=== PATIENT | male | born 1975 | race Caucasian/White ===

== ENCOUNTER 2022-01-07 10:03 | Outpatient (CLI) | payer OTHER, SELFPAY | END 2022-01-07 10:04 | disposition home or self-care (01) | LOC: OP CLINIC 10:06 | PROVIDERS: PCP Family Medicine; Visit Provider Internal Medicine | DX: Z12.11 Encounter for screening for malignant neoplasm of colon (principal); K63.5 Polyp of colon; Z80.0 Family history of malignant neoplasm of digestive organs | CPT/HCPCS: 45385; 88305; J2250; J3010 ==

== ENCOUNTER 2024-08-03 01:44 | Emergency (ER) | payer OTHER, SELFPAY ==
--- NOTE | 2024-08-03 01:45 | ED_ITS ---
HPI - General Adult General Date Seen: 08/03/24 Chief complaint: Fever Stated complaint: Fever, short of breath, elevated heartrate Time Seen by Provider: 08/03/24 01:44 History of Present Illness HPI narrative: 48-year-old male with a past medical history of obstructive sleep apnea and previous diagnosis of reactive airways disease/asthma . He is a nonsmoker. He has a family history of coronary artery disease. His father had a triple bypass. His grandmother also had a heart valve replaced. He presents to the ER today by private car, accompanied by his . He report that he did become sick this evening at around 7 or 8:00 p.m. with sensation of chills and feeling cold. Prior to that he had a little bit of leg aches in both of his legs for the past couple of days. No known new activity or injury. 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 His recently got him an exercise bike that fits underneath his desk so he can do some paddling while he is working during the day. He has not started using it yet. After the chills he went to bed this evening. He was awoken at about 1:00 a.m. this morning with shivering chills and shakes. He felt very hot and he actually got in the shower to cool off. He measured his temperature at 101? F. measured his temperature a 2nd time and got a reading of 103 F. he took some Tylenol. In addition to feeling shaky and fever a she also had some tightness and trouble breathing in his chest. Use 2 puffs of his albuterol inhaler with some improvement in that chest tightness. His measured his vital signs. Oxygen levels were 95% roughly. Heart rate was higher than normal for him at 105 beats per minute. He does not have any recent travel or prolonged immobilization. No recent swelling in his legs. No history of DVT or PE. Nonsmoker. . Related Data Home Medications ?Medication ?Instructions ?Recorded ?Confirmed clobetasol 0.05 % topical cream 1 topical BID 11/17/21 10/07/22 Previous Rx's ?Medication ?Instructions ?Recorded montelukast 10 mg tablet 10 mg PO .Bedtime #90 tabs 10/07/22 albuterol sulfate 90 mcg/actuation 2 inh inhalation Q4H PRN shortness 07/27/23 aerosol inhaler of breath or wheezing #8.5 grams Allergies Allergy/AdvReac Type Severity Reaction Status Date / Time No Known Allergies Allergy Verified 10/07/22 12:37 airborne allergies Allergy Mild asthma Uncoded 10/07/22 12:37 triggers PFSH PFSH Surgical History (Updated 10/07/22 @ 12:03 by Curtis Clark PA-C) History of colonoscopy ?Z98.890 - Other specified postprocedural states (ICD-10) History of vasectomy ?Z98.52 - Vasectomy status (ICD-10) History of umbilical hernia repair ?Z98.890 - Other specified postprocedural states (ICD-10) ?Z87.19 - Personal history of other diseases of the digestive system (ICD-10) Family History (Updated 11/17/21 @ 13:00 by Caty Baez MD) Father Coronary artery disease Leukemia Uncle Colon cancer Social History (Updated 11/09/21 @ 11:06 by Celestino Gordon) Narrative: consumes alcohol occasionally does not use illicit drugs former smoker- quit in 2014 Smoking Status: Never smoker Exam Narrative: Exam Narrative: Constitutional: Appears well-developed and well-nourished. Alert. Conversant. Non toxic. Feels warm although his measured temperature is normal HENT: Head: Atraumatic. Nose: Nose normal. Mouth/Throat: Oral mucosa is clear and moist. no trismus. Pharynx normal. Tonsils symmetric. No tonsillar enlargement, erythema, or exudate. Eyes: Conjunctivae normal. EOM normal. Pupils equal, round, and reactive to light. No scleral icterus. Neck: Normal range of motion. Neck supple. No tracheal deviation present. Cardiovascular: Heart rate charted at 107m. in triage. Heart rate is 95 by my count during auscultation, regular rhythm. No gallop. No friction rub. No murmur heard. Symmetric radial and PT artery pulses Pulmonary/Chest: Effort normal. No stridor. No respiratory distress. No wheezes. No rales. No rhonchi . No tenderness. Abdominal: Soft. No distension. No mass. No tenderness. No rebound. No guarding. Musculoskeletal: RUE: Normal range of motion. No tenderness. No deformity LUE: Normal range of motion. No tenderness. No deformity RLE: Normal range of motion. No edema. No tenderness. No deformity LLE: Normal range of motion. No edema. No tenderness. No deformity Neurological: Alert and oriented to person, place, and time. Normal strength. CN II-VII intact. No sensory deficit. GCS eye subscore is 4. GCS verbal subscore is 5. GCS motor subscore is 6. Normal coordination Skin: Skin is warm and dry. No rash noted. No pallor. Normal capillary refill. Psychiatric: Normal mood. Normal affect. Const: Vital Signs, click to edit/add: Vital Signs - 24 hr 08/03/24 01:46 Temperature 99 F Pulse Rate [Right Pulse Oximeter] 107 H Respiratory Rate 18 Blood Pressure [Ri ght Upper Arm] 165/84 H Pulse Oximetry 97 Oxygen Delivery Me thod Room Air Course Course ED Course: Recheck-continues to feel well. Resting comfortably on the bed. Breathing easily discussed workup so far. Initial troponin negative. Chest x-ray showing signs suspicious for an atypical pneumonia. We discussed the typical workup for chest pain/suspected ACS. Typically we would obtain a 2 hour delta troponin. However, patient really feels that his shortness of breath was more likely related to the fever and that he really did not have ?chest pain. ?. He would rather discharge home without the 2nd troponin at this point. His is comfortable and supports his decision. Will treat him for atypical pneumonia. Prescription for Azithromycin provided through [facility] Vital Signs Vital signs: Initial Vital Signs Temperature 99 F 08/03/24 01:46 Temperature Source Temporal Artery Scan 08/03/24 01:46 Pulse Rate 107 H 08/03/24 01:46 Respiratory Rate 18 08/03/24 01:46 Blood Pressure 165/84 H 08/03/24 01:46 Blood Pressure Mean 111 H 08/03/24 01:46 Blood Pressure Position Sitting 08/03/24 01:46 Pulse Oximetry 97 08/03/24 01:46 Oxygen Delivery Method Room Air 08/03/24 01:46 Vital Signs Temperature 99 F 08/03/24 01:46 Pulse Rate 107 H 08/03/24 01:46 Respiratory Rate 18 08/03/24 01:46 Blood Pressure 165/84 H 08/03/24 01:46 Pulse Oximetry 97 08/03/24 01:46 Oxygen Delivery Method Room Air 08/03/24 01:46 Temperature 99 F 08/03/24 01:46 Pulse Rate 107 H 08/03/24 01:46 Respiratory Rate 18 08/03/24 01:46 Blood Pressure 165/84 H 08/03/24 01:46 Pulse Oximetry 97 08/03/24 01:46 Oxygen Delivery Method Room Air 08/03/24 01:46 Medical Decision Making MDM Narrative Medical decision making narrative: This patient presents to the ER today for evaluation of chest tightness and shortness of breath.. Differential was broad. No evidence of palpitations, syncope or other cardiac dysrhythmia. He did report a heart rate elevated at 105 at home. When he arrived here at triage heart rate is 107. EKG confirms this is sinus rhythm and not an arrhythmia. He also had chills early this evening and had a fever measured up to 103 F at home. Suspect probable infection. Although his lung is somewhat hypoinflated on imaging, Chest x-ray is suspicious for an atypical pneumonia, in particular with a subtle right middle lobe hazy infiltrate. Influenza swab is negative. COVID negative. He did have some chest tightness and gave himself a dose of his albuterol inhaler at home. Lung sounds are clear and oxygen levels are normal upon arrival to the ER. At this point no wheezing. No hypoxia. Would hold off on additional nebulizers here in the ER. Also hold off on steroids given the absence of wheezing. We considered possible ACS, however workup with EKG and troponin is negative. Given time since onset of symptoms, we discussed serial enzymes here in the ER. Ultimately given the predominance of symptoms suggesting an infection (fever, cough, body aches, developing headache, infiltrate on chest x-ray), the patient would rather not stay for further enzymes. Using a process of shared decision making we decided to hold off for now. However precautions for return to the ER with any worsening pain or trouble breathing. Patient agrees to come back right away EKG shows no evidence for pericarditis. Clinical presentation not suggestive of myocarditis. Chest x-ray shows no evidence for pneumonia, pneumothorax, pulmonary edema, pleural effusion, rib fracture, cardiomegaly. Mediastinum is normal on the x-ray. The patient has no ripping or tearing pain through to the back and has symmetric pulses on exam, no other acute neuro findings so I doubt aortic dissection. Risk of radiation and contrast exposure would outweigh the benefit of CT angiogram. We considered PE for this patient. However would be very low risk. He did present with tachycardia but I think that is explained by his fever. No other risk factors for PE. I suspect that with his active infection, if measured, a D- dimer would be highly likely to an abnormal result. Therefore, D-dimer would not really be helpful in ruling in or ruling out PE. Overall my clinical suspicion strongly favors infection. At this point we feel that the risk of radiation from a CT PA would outweigh the benefit. No signs of chest wall cellulitis, shingles, injury. With reasonable clinical confidence, I think the patient is safe for outpatient follow up. Discussed return precautions. Questions answered. Patient voices comfort with the plan. Lab Data Labs: Lab Results 08/03/24 08/03/24 Range/Units 01:35 02:40 WBC 12.01 H (4.50-11.00) K/uL RBC 5.61 (4.30-5.90) m/uL Hgb 17.0 (13.5-17.5) gm/dL Hct 50.3 (37.0-53.0) % MCV 90 (80-100) fL MCH 30 (26-34) pg MCHC 34 (32-36) gm/dL RDW Coeff of Erin 12.4 (11.5-15.5) % Plt Count 287 (140-440) K/uL Neut % (Auto) 88.2 H (42.0-72.0) % Lymph % (Auto) 5.3 L (20-44) % [place] % (Auto) 5.2 (0.0-11.0) % Eos % (Auto) 0.7 (0.0-7.0) % Baso % (Auto) 0.2 (0.0-3.0) % Neut # (Auto) 10.60 H (1.7-7.0) K/uL Lymph # (Auto) 0.60 L (0.90-2.90) K/uL [place] # (Auto) 0.60 (0.00-0.90) K/UL Eos # (Auto) 0.10 (0.00-0.50) K/uL Baso # (Auto) 0.00 (0.00-0.30) K/uL Abs Immat Gran (auto) 0.00 (0.00-0.30) K/uL Imm/Tot Granulo (auto) 0.4 % Sodium 139 (135-149) mmol/L Potassium 4.1 (3.6-5.1) mmol/L Chloride 103 (96-114) mmol/L Carbon Dioxide 26 (20-32) mmol/L Anion Gap 10 (7-15) mEq/L BUN 20 (5-24) mg/dL Creatinine 0.9 (0.5-1.5) mg/dL Estimated Creat Clear 86.37 Estimated GFR 105 ml/min Glucose 123 H (60-115) mg/dL Calcium 9.0 (8.4-10.6) mg/dL Troponin I < 0.01 (0.01-0.04) ng/mL SARS-CoV-2 (PCR) Negative SARS-CoV-2 (Negative) Influenza Type A (PCR) Negative PCR FLU A (Negative) Influenza Type B (PCR) Negative PCR FLU B (Negative) Imaging Data Chest x-ray: Attestation: I have reviewed the pertinent imaging results. My impression: Only 7 posterior ribs visible above the diaphragm suggesting probably incomplete inspiration during x-ray. Possible right middle lobe haziness/infiltrate. Also subtle left-sided haziness. Could be pneumonia versus shallow inspiration Radiologist's impression: Findings/Impression: Low lung volumes. Diffuse prominence of vascular and perihilar markings, could represent an atypical/viral infection or may be artifactual due to bronchovascular crowding from hypoinspiration. No organized consolidation appreciated. Dictated by Xavi Titus MD @ 08/03/2024 3:05:38 AM ECG Data Attestation: I personally reviewed and interpreted this ECG as follows: Interpretation: Normal sinus rhythm Rate: 99 VA: 136 QRS axis: Normal axis. No pathologic Q-waves. ST segment/T wave: No ST segment elevation or depression QTc: 420 No old EKGs available for comparison. Discharge Plan Discharge Clinical Impression: Atypical pneumonia, Chest tightness Patient Disposition: Home, Self-Care Condition: Stable Instructions: Community Acquired Pneumonia (DC) Additional Instructions: As we discussed, your x-ray shows faint smudge is in your lungs which suggest an infection called ?atypical pneumonia. ?. This is an infection caused by bacteria such as mycoplasma pneumoniae. We can treat this with course of antibiotics. Please start on the Azithromycin this morning. Usually with an infection like this patient has have fever, chills, body aches, headache as well as cough that last for several days, often up to a week. To avoid spreading this contagious illness, please stay home until your fever has been gone for 24 hours an your symptoms are, on the whole, getting better Fortunately, your influenza swab is negative The EKG and blood test for your heart are normal. At this point, we do not see any evidence for a heart attack. However, if you have worsening trouble breathing or new chest pain, or any concerns, please return to the ER immediately to be rechecked Prescriptions: No Action clobetasol 0.05 % cream 1 topical BID Rx Instructions: APPLY SPARINGLY TO AFFECTED AREA twice daily for 2 weeks. Cover with a moisturizing cream. montelukast 10 mg tablet 10 mg PO .Bedtime Qty: 90 4RF albuterol sulfate 90 mcg/actuation HFA aerosol inhaler 2 inh inhalation Q4H PRN (Reason: shortness of breath or wheezing) Qty: 8.5 5RF Rx Instructions: Proair Follow Up/Referrals: Provider,Not a Local [Primary Care Provider] - Stand Alone Forms: [facility] Info Instructions
[2024-08-03 01:46] VITALS: BP 165/84; PULSE 107; RESP 18; TEMP 37.2; O2SAT 97; BMI 39.1
--- OUTSIDE RECORDS SUMMARY | 2024-08-03 01:48 | XMS_ITS | Clinical Summary ---
Author Organization [facility] Address [address] [place] [id number] Care Team Providers Care Last Puller Name Role Phone Pcp, No Primary Care Provider Unavailabl e Allergies No known active allergies Medications albuterol HFA (PROAIR HFA) 90 mcg/Actuation inhaler Inhale 2 Puffs by mouth every 4 hours if needed. 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 Gender Identity Not on file Sexual Orientation Not on file Obstetrics History Last Filed Vital Signs Vital Sign Reading Time Taken Comments Blood Pressure 116/78 06/01/2010 11:21 AM CUPOLA REPAIRER Pulse - - Temperature 36.6 C (97.9 F) 06/01/2010 11:21 AM CUPOLA REPAIRER Respiratory Rate - - Oxygen Saturation - - Inhaled Oxygen Concentration - - Weight 83.9 kg (185 lb) 06/01/2010 11:21 AM CUPOLA REPAIRER Height 165.1 cm (5' 5) 06/01/2010 11:21 AM CUPOLA REPAIRER Body Mass Index 30.79 06/01/2010 11:21 AM CUPOLA REPAIRER Plan of Treatment Health Maintenance Due Date Last Done Comments Tdap 1985 Depression screening for age 12+ 1986 HIV for age 15-65 1989 BMI (ht and wt on same day) for age 18+ 1992 Hepatitis C screening for ag e 18-79 1992 Tetanus booster 11/01/2011 10/31/2001 Colonoscopy through age 75 09/09/2019 Lipids for age 45-75 09/09/2019 06/01/2010 COVID-19 vaccine series ( - 2023-25 season) 2024 Influenza Vaccine (#1) 2024 Pneumococcal series for age 6-49 Aged Out No longer eligible based on patient's age to complete this topic Procedures Procedure Name Priority Date/Time Associated Diagnosis Comments LIPID PANEL W REFLEX MEASURED LDL Routine 06/01/2010 11:59 AM CUPOLA REPAIRER Routine general medical examination at a health care facility from Last 3 Months or Most Recently Relevant to Health Maintenance Results * (ABNORMAL) LIPID PANEL W REFLEX MEASURED LDL (06/01/2010 11:59 AM CUPOLA REPAIRER) CHOLESTEROL,TOTAL 212(H) 110 - 199 mg/dL [facility] 43 40 - 149 mg/dL [facility] HDL CHOLESTEROL 50 >40 mg/dL [facility] CHOL/HDL RATIO 4.24 <4.51 [facility] LDL CHOLESTEROL 153(H) <131 mg/dL [facility] PATIENT STATUS Fasting [facility] Blood specimen (specimen) BLOOD SPECIMEN / Unknown 06/01/2010 11:59 AM CUPOLA REPAIRER 06/01/2010 11:53 AM CUPOLA REPAIRER [facility] CHEMISTRY Final Result [facility] INTERNAL ZIP [id number] [address] [address] from Last 3 Months or Most Recently Relevant to Health Maintenance Insurance [place] [employer] Care Teams Last Puller Relationship Specialty Start Date End Date Pcp, No . PCP - General 08/13/13
--- NOTE | 2024-08-03 02:17 | CRLHL7_ITS ---
For Patients: As a result of the Cures Act, medical imaging exams and procedure reports are released immediately into your electronic medical record. You may view this report before your referring provider. If you have questions, please contact your health care provider. Indication: Fever, chest tightness Technique: Two views of the chest Comparison: None Findings/Impression: Low lung volumes. Diffuse prominence of vascular and perihilar markings, could represent an atypical/viral infection or may be artifactual due to bronchovascular crowding from hypoinspiration. No organized consolidation appreciated. Dictated by Xavi Titus MD @ 08/03/2024 3:05:38 AM (Electronically Signed)
--- OUTSIDE RECORDS SUMMARY | 2024-08-03 02:30 | XMS_ITS | Clinical Summary ---
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 Gender Identity Not on file Sexual Orientation Not on file Obstetrics History Last Filed Vital Signs Vital Sign Reading Time Taken Comments Blood Pressure 116/78 06/01/2010 11:21 AM SCHOOL MANAGER Pulse - - Temperature 36.6 C (97.9 F) 06/01/2010 11:21 AM SCHOOL MANAGER Respiratory Rate - - Oxygen Saturation - - Inhaled Oxygen Concentration - - Weight 83.9 kg (185 lb) 06/01/2010 11:21 AM SCHOOL MANAGER Height 165.1 cm (5' 5) 06/01/2010 11:21 AM SCHOOL MANAGER Body Mass Index 30.79 06/01/2010 11:21 AM SCHOOL MANAGER Plan of Treatment Health Maintenance Due Date [...] REFLEX MEASURED LDL Routine 06/01/2010 11:59 AM SCHOOL MANAGER Routine general medical examination at a health care facility from Last 3 Months or Most Recently Relevant to Health Maintenance Results * (ABNORMAL) LIPID PANEL W REFLEX MEASURED LDL (06/01/2010 11:59 AM SCHOOL MANAGER) CHOLESTEROL,TOTAL 212(H) 110 - 199 mg/dL [facility] 43 40 - 149 mg/dL [facility] HDL CHOLESTEROL 50 >40 mg/dL [facility] CHOL/HDL RATIO 4.24 <4.51 [facility] LDL CHOLESTEROL 153(H) <131 mg/dL [facility] PATIENT STATUS Fasting [facility] Blood specimen (specimen) BLOOD SPECIMEN / Unknown 06/01/2010 11:59 AM SCHOOL MANAGER 06/01/2010 11:53 AM SCHOOL MANAGER [facility] CHEMISTRY Final Result [facility] INTERNAL ZIP [id number] [address] from Last 3 Months or Most Recently Relevant to Health Maintenance Insurance [place] [employer] Care Teams Science And Operations Officer Relationship Specialty Start Date End Date Pcp, No . PCP - General 08/13/13
[2024-08-03 02:41] LABS: PCR FLU A Negative PCR FLU A (Negative); PCR FLU B Negative PCR FLU B (Negative); SARS PCR* Negative SARS-CoV-2 (Negative)
[2024-08-03 02:46] LABS: Basophils Percent Auto 0.2 % (0.0-3.0); Eosinophils Percent Auto 0.7 % (0.0-7.0); Hematocrit 50.3 % (37.0-53.0); Immature Granulocytes Pct Auto 0.4 %; Lymphocytes Percent Auto 5.3 % (20-44); Mean Corpuscular HGB Conc 34 gm/dL (32-36); Mean Corpuscular Hemoglobin 30 pg (26-34); Mean Corpuscular Volume 90 fL (80-100); Monocytes Percent Auto 5.2 % (0.0-11.0); Neutrophils Percent Auto 88.2 % (42.0-72.0); Platelet Count* 287 K/uL (140-440); RDW Coefficient of Variation % 12.4 % (11.5-15.5); Red Blood Count 5.61 m/uL (4.30-5.90); White Blood Count* 12.01 K/uL (4.50-11.00)
[2024-08-03 02:50] LABS: Slide Review Reflex No
[2024-08-03 02:53] LABS: Chloride* 103 mmol/L (96-114); Potassium* 4.1 mmol/L (3.6-5.1); Sodium* 139 mmol/L (135-149)
[2024-08-03 02:56] LABS: Anion Gap 10 mEq/L (7-15); Blood Urea Nitrogen* 20 mg/dL (5-24); Carbon Dioxide* 26 mmol/L (20-32); Creatinine* 0.9 mg/dL (0.5-1.5); Est. Creatinine Clearance* 86.37; Estimated Glomerular Filt Rate 105 ml/min
[2024-08-03 02:57] LABS: Glucose* 123 mg/dL (60-115)
[2024-08-03 03:43] LABS: Troponin I* < 0.01 ng/mL (0.01-0.04)
[2024-08-03 03:47] VITALS: RESP 18; TEMP 37.2
== END 2024-08-03 04:05 | disposition home or self-care (01) ==
PROVIDERS: Emergency Provider Emergency Medicine
DX: J18.9 Pneumonia, unspecified organism (principal); R07.89 Other chest pain
CPT/HCPCS: 36415; 71046; 80048; 84484; 85025; 87631; 99283; 99284

== ENCOUNTER 2024-09-17 08:35 | Outpatient (CLI) | payer OTHER, SELFPAY | END 2024-09-17 08:36 | disposition home or self-care (01) | PROVIDERS: Visit Provider Physician Assistant Medical | DX: Z00.01 Encounter for general adult medical examination with abnormal findings (principal); J45.20 Mild intermittent asthma, uncomplicated; Z13.6 Encounter for screening for cardiovascular disorders; Z12.5 Encounter for screening for malignant neoplasm of prostate | CPT/HCPCS: 80061; 84450; 84460; G0103 ==